=== PATIENT | male | born 1975 | race Caucasian/White ===

== ENCOUNTER 2017-09-19 20:51 | Emergency (ER) | payer OTHER ==
--- NOTE | 2017-09-19 21:38 | EDM.PDOC ---
ED HPI GENERAL MEDICAL PROBLEM - General Chief Complaint: Genitourinary Problem Stated Complaint: PT HAS ENLARGE PROSTATE Time Seen by Provider: 09/19/17 20:59 Source of Information: Reports: Patient History Limitations: Reports: No Limitations - History of Present Illness INITIAL COMMENTS - FREE TEXT/NARRATIVE: HISTORY AND PHYSICAL: History of present illness: Patient is a 42-year-old male who presents to the emergency room with penile pain is one week. He states he was seen at a clinic in [place] 3 days ago and had normal results. He states that they did a urinalysis, prostate screening, and STD screening, all of which were reported normal. He states the pain has not improved and he is concerned he has an infection. He denies any testicular swelling or pain. Significant other is at the bedside, they're reportedly monogamous. She states she does not have any symptoms (vaginal itching, burning, or pain) He denies any penile discharge, lesions, or open sores. He denies any new contact exposures such as condoms, lubricants, detergents. Denies any fever, chills, chest pain or shortness of breath. Denies any abdominal pain, nausea, vomiting or diarrhea. Denies any change in his bowel pattern. Denies any dysuria or difficulty starting his stream. Review of systems: As per history of present illness and below otherwise all systems reviewed and negative. Past medical history: As per history of present illness and as reviewed below otherwise noncontributory. Surgical history: As per history of present illness and as reviewed below otherwise noncontributory. Social history: No reported history of drug or alcohol abuse. Family history: As per history of present illness and as reviewed below otherwise noncontributory. Physical exam: Gen.: Developed and well nourished 42-year-old male. Appears nontoxic and in no acute distress. HEENT: Atraumatic, normocephalic, pupils reactive, negative for conjunctival pallor or scleral icterus, mucous membranes moist, throat clear, neck supple, nontender, trachea midline. Lungs: Clear to auscultation, breath sounds equal bilaterally, chest nontender. Heart: S1S2, regular rate and rhythm Abdomen: Soft, nondistended, nontender. Negative for masses or hepatosplenomegaly. Negative for costovertebral tenderness. Pelvis: Stable nontender. Genitourinary: This was done with a robotics systems engineer. There is no erythema, sores, lesions to the shaft of the penis, testicles, or head of the meatus. He states that it is tender to palpation on the anterior meatus. Normal appearing external genitalia. No pain with palpation of the testes. Rectal: Deferred. Extremities: Atraumatic, negative for cords or calf pain. Neurovascular unremarkable. Neuro: Awake, alert, oriented. Cranial nerves II through XII unremarkable. Cerebellum unremarkable. Motor and sensory unremarkable throughout. Exam nonfocal. I did discuss the urinalysis and STD testing that would be done today. As this patient already had a screening done in [place], which he states is normal I do not anticipate any new results today. Discussed him following up with the urologist. He states he will call tomorrow for an appointment. Will treat the patient's UTI with doxycycline 100 mg twice a day 10 days. Patient will follow-up with urology in the next couple days. Diagnostics: Urinalysis, gonorrhea and chlamydia Therapeutics: Doxycycline Impression: Penile pain UTI Plan: 1. These take your antibiotic as prescribed. 2. Follow-up with urology as we discussed. The phone number has been provided for you. 3. Return to the ED as needed and as discussed. Definitive disposition and diagnosis as appropriate pending reevaluation and review of above. Duration: Day(s): Location: Reports: Other (Penile) Penile Pain Score (Numeric/FACES): 5 - Related Data Allergies Allergy/AdvReac Type Severity Reaction Status Date / Time No Known Allergies Allergy Verified 09/19/17 21:09 Home Meds: Home Meds . [No Known Home Meds] 09/19/17 [History] Past Medical History - Past Health History Medical/Surgical History: Denies Medical/Surgical History Social & Family History - Family History Family Medical History: Noncontributory - Tobacco Use Smoking Status *Q: Current Every Day Smoker Years of Tobacco use: 17 Packs/Tins Daily: 1 - Recreational Drug Use Recreational Drug Use: No ED ROS GENERAL - Review of Systems Review Of Systems: ROS reveals no pertinent complaints other than HPI. ED EXAM, RENAL/ - Physical Exam Exam: See Below (See dictation) Course - Vital Signs Last Recorded V/S: Last Vital Signs Temp 37.0 C 09/19/17 21:10 Pulse 65 09/19/17 21:10 Resp 18 09/19/17 21:10 BP 143/93 H 09/19/17 21:10 Pulse Ox 95 09/19/17 21:10 - Orders/Labs/Meds Orders: Active Orders 24 hr Category Date Time Status CHLAMYDIA AND GONORRHEA BY [facility] Urgent Lab 09/19/17 21:05 Received Doxycycline [Vibramycin] Med 09/19/17 21:58 Once 100 mg PO ONETIME ONE Labs: Laboratory Tests 09/19/17 Range/Units 21:05 Urine Color YELLOW Urine Appearance HAZY Urine pH 6.0 (5.0-8.0) Ur Specific [place] 1.025 (1.001-1.035) Urine Protein NEGATIVE (NEGATIVE) mg/dL Urine Glucose (UA) NEGATIVE (NEGATIVE) mg/dL Urine Ketones NEGATIVE (NEGATIVE) mg/dL Urine Occult Blood SMALL H (NEGATIVE) Urine Nitrite NEGATIVE (NEGATIVE) Urine Bilirubin NEGATIVE (NEGATIVE) Urine Urobilinogen 0.2 (<2.0) EU/dL Ur Leukocyte Esterase TRACE (NEGATIVE) Urine RBC 4-6 (0-2/HPF) Urine WBC 6-8 (0-5/HPF) Ur Epithelial Cells RARE (NONE-FEW) Urine Bacteria FEW (NEGATIVE) Departure - Departure Time of Disposition: 22:00 Disposition: Home, Self-Care 01 Clinical Impression: UTI, Urinary tract infectious disease, Penile pain - Discharge Information Forms: ED Department Discharge Additional Instructions: My general discharge The following information is given to patients seen in the emergency department who are being discharged to home. This information is to outline your options for follow-up care. We provide all patients seen in our emergency department with a follow-up referral. The need for follow-up, as well as the timing and circumstances, are variable depending upon the specifics of your emergency department visit. If you don't have a primary care physician on staff, we will provide you with a referral. We always advise you to contact your personal physician following an emergency department visit to inform them of the circumstance of the visit and for follow-up with them and/or the need for any referrals to a consulting specialist. The emergency department will also refer you to a specialist when appropriate. This referral assures that you have the opportunity for follow-up care with a specialist. All of these measure are taken in an effort to provide you with optimal care, which includes your follow-up. Under all circumstances we always encourage you to contact your private physician who remains a resource for coordinating your care. When calling for follow-up care, please make the office aware that this follow-up is from your recent emergency room visit. If for any reason you are refused follow-up, please contact the [facility] Emergency Department at and asked to speak to the emergency department charge nurse. [facility] Specialty Care - Neurology Professional Building [address] [place] [address], [address] [place] [address] 1. These take your antibiotic as prescribed. 2. Follow-up with urology as we discussed. The phone number has been provided for you. 3. Return to the ED as needed and as discussed. - My Orders Last 24 Hours: My Active Orders 09/19/17 21:05 CHLAMYDIA AND GONORRHEA BY [facility] Urgent 09/19/17 21:58 Doxycycline [Vibramycin] 100 mg PO ONETIME ONE - Assessment/Plan Last 24 Hours: My Active Orders 09/19/17 21:05 CHLAMYDIA AND GONORRHEA BY [facility] Urgent 09/19/17 21:58 Doxycycline [Vibramycin] 100 mg PO ONETIME ONE
[2017-09-19] MEDS ORDERED: Doxycycline 100 MG Cap PO ONE (21:58)
== END 2017-09-19 22:11 | disposition home or self-care (01) ==
LOC: MW.ED 20:51
DX: N39.0 Urinary tract infection, site not specified (principal); F17.210 Nicotine dependence, cigarettes, uncomplicated
CPT/HCPCS: 81001; 87491; 87591; 99283; A9270; 99284

== ENCOUNTER 2018-11-11 18:24 | Emergency (ER) | payer OTHER ==
--- NOTE | 2018-11-11 18:34 | EDM.PDOC ---
ED HPI GENERAL MEDICAL PROBLEM - General Chief Complaint: Lower Extremity Injury/Pain Stated Complaint: LEFT KNEE PAIN Time Seen by Provider: 11/11/18 18:33 Source of Information: Reports: Patient History Limitations: Reports: No Limitations - History of Present Illness INITIAL COMMENTS - FREE TEXT/NARRATIVE: HISTORY AND PHYSICAL: History of present illness: Patient is a 43-year-old male who presents to the emergency room with complaints of left knee pain. He states he has had this pain for approximately one week which is progressively getting worse. He states he has a history of gout and has had it in "all of my joints". He believes that this pain is related to his gout. He denies any injury, trauma or falls. He is ambulatory and able to weight-bear although states it is painful. He states he did have some leftover prednisone which she has been taking 20 mg over the past 4 days. He denies any fever, chills, chest pain, shortness of breath or cough. Denies any abdominal pain, nausea, vomiting, diarrhea or constipation. He has been eating and drinking appropriately. Review of systems: As per history of present illness and below otherwise all systems reviewed and negative. Past medical history: As per history of present illness and as reviewed below otherwise noncontributory. Surgical history: As per history of present illness and as reviewed below otherwise noncontributory. Social history: See social history for further information Family history: As per history of present illness and as reviewed below otherwise noncontributory. Physical exam: General: Well-developed and well-nourished 43-year-old male. Alert and oriented. Nontoxic appearing and in no acute distress. HEENT: Atraumatic, normocephalic, pupils equal and reactive bilaterally, negative for conjunctival pallor or scleral icterus, mucous membranes moist, TMs normal bilaterally, throat clear, neck supple, nontender, trachea midline. No drooling or trismus noted. No meningeal signs. No hot potato voice noted. Lungs: Clear to auscultation, breath sounds equal bilaterally, chest nontender. Heart: S1S2, regular rate and rhythm without overt murmur Abdomen: Soft, nondistended, nontender. Negative for masses or hepatosplenomegaly. Negative for costovertebral tenderness. Pelvis: Stable nontender. Genitourinary: Deferred. Rectal: Deferred. Skin: Intact, warm, dry. No soft tissue swelling or erythema noted. No lesions or rashes noted. Extremities: Atraumatic, moves all extremities per self without difficulty or deficits, mild tenderness along the anterior portion of the knee. No knee instability or laxity city. Strong pedal pulse. negative for cords or calf pain. Neurovascular unremarkable. Neuro: Awake, alert, oriented. Cranial nerves II through XII unremarkable. Cerebellum unremarkable. Motor and sensory unremarkable throughout. Exam nonfocal. Notes: On discussing the treatment of gout he states that the pills that we were discussing normally do not work for him. We'll give him one tablet Luckey while here for pain relief and colchicine. Otherwise I will have him follow-up with his primary care provider for further evaluation and management. Crutches provided for comfort. Diagnostics: X-ray Therapeutics: Luckey x1 Colchicine 1.2mg now, 0.6mg in an hour Crutches Prescription: Diclofenac PRN Impression: Left knee pain History of Gout Plan: 1. Use the crutches as directed for comfort 2. Take your prednisone 30mg once daily x 5 days. 3. You have had Colchicine here in the ER. May fill and start taking the Diclofenac tomorrow. Take with food as it may cause stomach upset. 4. Please follow up with your primary care provider tomorrow. Return to the ED as needed as discussed. Definitive disposition and diagnosis as appropriate pending reevaluation and review of above. left knee Pain Score (Numeric/FACES): 9 - Related Data Allergies Allergy/AdvReac Type Severity Reaction Status Date / Time No Known Allergies Allergy Verified 11/11/18 18:36 Home Meds: Home Meds Diclofenac Sodium [Voltaren] 75 mg PO BIDMEALS PRN #20 tab.cr 11/11/18 [Rx] Past Medical History - Past Health History Medical/Surgical History: Denies Medical/Surgical History Social & Family History - Family History Family Medical History: Noncontributory Review of Systems - Review of Systems Review Of Systems: ROS reveals no pertinent complaints other than HPI. ED EXAM, GENERAL - Physical Exam Exam: See Below (See dictation) Course - Vital Signs Last Recorded V/S: Last Vital Signs Temp 97 F 11/11/18 18:30 Pulse 82 11/11/18 18:30 Resp 16 11/11/18 18:30 BP 139/93 H 11/11/18 18:30 Pulse Ox 99 11/11/18 18:30 - Orders/Labs/Meds Orders: Active Orders 24 hr Category Date Time Status Knee 3V Lt [CR] Stat Exams 11/11/18 18:38 Ordered Meds: Medications Discontinued Medications Generic Name Dose Route Start Last Admin Trade Name Freq PRN Reason Stop Dose Admin Hydrocodone Bitart/Acetaminophen 1 tab 11/11/18 18:43 11/11/18 18:49 Luckey 325-5 Mg PO 11/11/18 18:44 1 tab ONETIME ONE Administration Colchicine 1.8 mg 11/11/18 18:46 11/11/18 18:52 Colcrys PO 11/11/18 18:47 1.8 mg ONETIME ONE Administration Departure - Departure Time of Disposition: 18:59 Disposition: Home, Self-Care 01 Clinical Impression: History of gout, Left anterior knee pain - Discharge Information Prescriptions: Diclofenac Sodium [Voltaren] 75 mg PO BIDMEALS PRN #20 tab.cr PRN Reason: Pain Instructions: Knee Pain, Adult, Gout, [id number] Referrals: PCP,None [Primary Care Provider] - Forms: ED Department Discharge Additional Instructions: The following information is given to patients seen in the emergency department who are being discharged to home. This information is to outline your options for follow-up care. We provide all patients seen in our emergency department with a follow-up referral. The need for follow-up, as well as the timing and circumstances, are variable depending upon the specifics of your emergency department visit. If you don't have a primary care physician on staff, we will provide you with a referral. We always advise you to contact your personal physician following an emergency department visit to inform them of the circumstance of the visit and for follow-up with them and/or the need for any referrals to a consulting specialist. The emergency department will also refer you to a specialist when appropriate. This referral assures that you have the opportunity for follow-up care with a specialist. All of these measure are taken in an effort to provide you with optimal care, which includes your follow-up. Under all circumstances we always encourage you to contact your private physician who remains a resource for coordinating your care. When calling for follow-up care, please make the office aware that this follow-up is from your recent emergency room visit. If for any reason you are refused follow-up, please contact the [facility] Emergency Department at and asked to speak to the emergency department charge nurse. [facility] Primary Care [address] [address] [facility] Specialty Care - Orthopedic Clinic Professional Building [address], [address] [place] [address] 1. Use the crutches as directed for comfort 2. Take your prednisone 30mg once daily x 5 days. 3. You have had Colchicine here in the ER. May fill and start taking the Celecoxib tomorrow. Take with food as it may cause stomach upset. 4. Please follow up with your primary care provider tomorrow. Return to the ED as needed as discussed. - My Orders Last 24 Hours: My Active Orders 11/11/18 18:38 Knee 3V Lt [CR] Stat - Assessment/Plan Last 24 Hours: My Active Orders 11/11/18 18:38 Knee 3V Lt [CR] Stat
[2018-11-11] MEDS ORDERED: Acetaminophen/HYDROcodone 325-5 MG Tab PO ONE (18:43)
[2018-11-11] MEDS ORDERED: Colchicine 0.6 MG Tab PO ONE (18:46)
--- NOTE | 2018-11-11 19:21 | CR ---
HISTORY: Pain. TECHNIQUE: Left knee 3 views. COMPARISON: None. FINDINGS: No fracture. Joint spaces appear maintained. IMPRESSION: No acute bone abnormality. Dictated by Charles Buckley MD @ Nov 11 2018 7:19PM Signed by Dr. Charles Buckley @ Nov 11 2018 7:20PM
== END 2018-11-11 19:23 | disposition home or self-care (01) ==
LOC: MW.ED 18:24
DX: M25.562 Pain in left knee (principal); F17.210 Nicotine dependence, cigarettes, uncomplicated
CPT/HCPCS: 73562; 99283; A9270